=== PATIENT | female | born 1970 | race African-American/Black ===

== ENCOUNTER 2019-08-15 11:14 | Inpatient (IN) ==
--- NOTE | 2019-08-15 12:02 | PROVIDER DOCUMENTATION ---
This chart was entered by Aleshia Navas Scribe, acting as scribe for Adan Gonzalez MD. HPI-General Adult - General Chief Complaint: Near Syncope Stated Complaint: SOB,NEAR SYNCOPE Time Seen by Provider: 08/15/19 11:35 Source: patient Allergies/Adverse Reactions: Patient Allergies Allergy/AdvReac Type Severity Reaction Status Date / Time No Known Allergies Allergy Verified 08/15/19 11:36 Home Medications: Home Medication List Medication Instructions Recorded Confirmed Last Taken Type NK [No Home Medications] 08/15/19 08/15/19 Unknown History - History of Present Illness -Gen Adult Nature of Presenting Problems: 49 y/o female presents to ED with near syncope and nausea onset just prior to arrival. Pt reports she has experienced weakness and continuous/heavy vaginal bleeding for the past 2 months. Pt states her symptoms have gotten progressively worse and she is bleeding through 4 pads/day. Pt reports she was told last year at a walk-in clinic that she needed to have a hysterectomy, but she does not have insurance. Pt is alert and oriented. Location of Pain/Injury: reports: none Pain Radiation: reports: no radiation Quality of Pain: reports: none Severity: reports: moderate Onset/Duration: reports: just prior to arrival, other (2 months ago) Timing: reports: still present, getting worse Context/Activities at Onset: reports: none Modifying Factors: improves with: nothing Associated Symptoms: reports: nausea, syncope (near), weakness, other (heavy vaginal bleeding) Similar Symptoms Previously?: No Recently seen or treated by another doctor?: No Review of Systems - Adult - REVIEW OF SYSTEMS - ADULT Constitutional: denies: chills, fever Eyes: reports: no symptoms reported Ears, Nose, Mouth & Throat: reports: no symptoms reported Cardiovascular: denies: chest pain, palpitations Respiratory: denies: cough, shortness of breath Gastrointestinal: reports: nausea. denies: abdominal pain, diarrhea, vomiting Genitourinary: reports: other (heavy vaginal bleeding). denies: incontinence Musculoskeletal: denies: back pain, joint pain Integumentary: reports: no symptoms reported Neurological: reports: syncope (near), other (weakness). denies: dizziness/v ertigo, seizure Psychiatric: reports: no symptoms reported Endocrine: reports: no symptoms reported Hematologic/Lymphatic: reports: no symptoms reported Allergic/Immunologic: reports: no symptoms reported All Other Systems: Reviewed and Negative Past History - Adult - PAST MEDICAL HISTORY-ADULT Review of Records: reports: Old Records Reviewed, Nursing Assessment Review, Medications Reviewed Major Childhood Illnesses: reports: denies history - PRIOR SURGERIES/PROCEDURES Surgical/Procedure History: reports: none - IMMUNIZATION STATUS Childhood Immunizations: See Nurse Assessment Flu Vaccine: See Nurse Assessment - FAMILY HISTORY Family History: reviewed, not pertinent - SOCIAL HISTORY Smoking: non-smoker Substance Use: none/never Alcohol Use Frequency: never Living Situation: family Physical Exam-General - PHYSICAL EXAM-ADULT Initial Vital Signs Reviewed: Yes - CONSTITUTIONAL General Appearance: appears well, alert, no apparent distress - EYES Eyes: PERRL/EOMI, pale conjunctivae - HEAD, EARS, NOSE, MOUTH & THROAT HENMT: normocephalic/atraumatic, moist mucous membranes, normal ENT inspection - NECK Neck: non-tender, full range of motion - RESPIRATORY Respiratory: chest non-tender, lungs clear, normal breath sounds - CARDIOVASCULAR Cardiovascular: normal peripheral pulses, regular rate, rhythm - GASTROINTESTINAL (ABDOMEN) Abdominal Exam: normal bowel sounds, non tender, soft - GENITOURINARY Female Genitalia/Pelvic Exam: deferred - MUSCULOSKELETAL Back Exam: normal inspection, no CVA tenderness, no vertebral tenderness Extremity: normal range of motion, non-tender - SKIN Integumentary: normal color, warm/dry - NEUROLOGIC Neurologic: grossly normal - PSYCHIATRIC Psych/Mental Status: normal mood/affect, normal thought content, normal thought process, oriented x 3 Progress - PLAN OF CARE/RESULTS Progress/Plan/Lab Results: Vital Signs - 8 hr 08/15/19 11:18 Temperature 97.6 F Pulse Rate 91 H Respiratory Rate 18 Blood Pressure 100/66 O2 Sat by Pulse Oximetry 100 Laboratory Results - last 24 hr 08/15/19 11:35 POC Glucose 238 H Orders Category Date Time Status CBC WITH DIFF [HEME] Stat Lab 08/15/19 11:40 Uncollected COMPREHENSIVE METABOLIC PANEL [CHEM] Stat Lab 08/15/19 11:40 Uncollected PT [PROTIME WITH INR] [COAG] Stat Lab 08/15/19 11:40 Uncollected PTT [COAG] Stat Lab 08/15/19 11:40 Uncollected TYPE & SCREEN [BBK] Stat Lab 08/15/19 11:40 Uncollected Laboratory Tests 08/15/19 08/15/19 08/15/19 11:35 11:47 11:47 WBC 9.94 RBC 2.64 L Hgb 4.8 L* Hct 18.1 L MCV 68.6 L MCH 18.2 L MCHC 26.5 L RDW Std Deviation 21.5 H Plt Count 698 H MPV 9.3 Immature Gran % (Auto) 0.2 Neut % (Auto) 62.1 Lymph % (Auto) 26.1 York % (Auto) 10.6 H Eos % (Auto) 0.5 Baso % (Auto) 0.5 Immature Gran # (Auto) 0.02 Neut # (Auto) 6.18 Lymph # (Auto) 2.59 York # (Auto) 1.05 H Eos # (Auto) 0.05 Baso # (Auto) 0.05 Segmented Neutrophils 76 H Lymphocytes 16 L Monocytes 8 Hypochromia 3+ Large Platelets 1+ Polychromasia 1+ Poikilocytosis 1+ Anisocytosis 2+ Microcytosis 3+ PT INR PTT (Actin FS) Sodium 133 L Potassium 3.9 Chloride 102 Carbon Dioxide 18 L Anion Gap 13 BUN 8 Creatinine 0.7 Estimated GFR/1.73 m2 > 60 BUN/Creatinine Ratio 11 Glucose 233 H POC Glucose 238 H Calculated Osmolality 272 Calcium 9.1 Total Bilirubin 0.27 AST 27 ALT 14 Alkaline Phosphatase 90 Total Protein 7.9 Albumin 3.9 Globulin 4.0 Albumin/Globulin Ratio 1.0 Blood Type Blood Type Confirm Antibody Screen Crossmatch 08/15/19 08/15/19 08/15/19 11:47 11:47 12:18 WBC RBC Hgb Hct MCV MCH MCHC RDW Std Deviation Plt Count MPV Immature Gran % (Auto) Neut % (Auto) Lymph % (Auto) York % (Auto) Eos % (Auto) Baso % (Auto) Immature Gran # (Auto) Neut # (Auto) Lymph # (Auto) York # (Auto) Eos # (Auto) Baso # (Auto) Segmented Neutrophils Lymphocytes Monocytes Hypochromia Large Platelets Polychromasia Poikilocytosis Anisocytosis Microcytosis PT 14.3 INR 1.10 PTT (Actin FS) 28.0 Sodium Potassium Chloride Carbon Dioxide Anion Gap BUN Creatinine Estimated GFR/1.73 m2 BUN/Creatinine Ratio Glucose POC Glucose Calculated Osmolality Calcium Total Bilirubin AST ALT Alkaline Phosphatase Total Protein Albumin Globulin Albumin/Globulin Ratio Blood Type O POSITIVE Blood Type Confirm O POSITIVE Antibody Screen NEGATIVE Crossmatch See Detail Result Diagrams: 08/15/19 11:47 08/15/19 11:47 - EKG 1 Time of EKG reading by physician:: 11:32 EKG Read and Signed by:: Adan Gonzalez EKG Interpretation (*Must complete 3 of following elements*): Normal Rate: 91 Rhythm: NSR Leupp: normal QRS: normal HI Interval: normal ST Wave: normal - ULTRASOUND (By Radiology) 1 US Study: Pelvic Impression: See EMR Report ([facility] - [address], [address], [place] [address] [facility] - [address] [place] [address] Department of Imaging Patient: PETER SMITH Date: 08/15/19MR#: [id number] : 1970ADM Status: REG ERAcct#: [id number] Age/Sex: 49/FRoom/Bed: Loc: ED Ordering Physician: Adan Gonzalez MD Family Physician: None,PCP Reason for Procedure: persistent bleeding Signed EXAM: US PELVIC NON-OB COMPLETE INDICATION: persistent bleeding TECHNIQUE: COMPARISON: None. FINDINGS: There is a hypoechoic mass involving the mid uterine wall measuring up to 4.7 cm. This statistically most likely represents a leiomyoma. The uterus is normal in echotexture, otherwise. It measures 13.3 x 6.4 x 5.3 cm. The endometrium measures 3 mm in thickness. There is a 3.3 cm left ovarian cyst. The left ovary measures 5.1 cm and the right ovary measures 2.7 cm in the greatest dimensions. Both ovaries exhibit Doppler flow. No solid adnexal masses are appreciated. No pelvic free fluid is identified. IMPRESS ION: 1.Uterine wall mass most consistent with a leiomyoma. 2.Simple appearing left ovarian cyst. Electronically signed by Jan Byrne 08/15/2019 3:13 PM 08/15/19 1513 Interpreting Physician: Jan Byrne MD Dictated Date/Time: 08/15/19 1511 cc: Adan Gonzalez MD; None,PCP) - CONSULTS/PCP/HOSPITALIST Notification #1 *Consult/PCP/Hospitalist*: JOSE Chambers for hospitalist Time Discussed: 15:39 Reason/Comments: Hemoglobin 4.8, uterine mass, new onset diabetes Consult Disposition: Admit (consult APPEALS REFEREE) #2 Consult: Dr. Hilton Time Discussed: 15:42 Reason/Comments: Hemoglobin 4.8, uterine mass, new onset diabetes Consult Disposition: Admit Departure - Departure Date of Disposition Decision: 08/15/19 Time of Disposition Decision: 15:41 DIAGNOSIS: Acute blood loss anemia, Pre-syncope, Diabetes mellitus, new onset Uterine fibroid Qualifiers: Uterine leiomyoma location: unspecified location Qualified Code(s): D25.9 - Leiomyoma of uterus, unspecified Disposition: ADMITTED INPATIENT 09 Certified Medical Emergency: Emergent Condition: Stable Referrals and Follow-Ups: None,PCP [Primary Care Provider] - - Critical Care Note This patient required my direct & personal management of CC.: Yes Total Time (mins): 30 Critical Care Statement: This patient required my direct personal management to treat or rule out processes, the absence of which, could potentiallly result in sudden, clinically significant life or limb threatening deterioration. Attestation - Physician/ DONOVAN Attestation Patient care was provided by Advanced Practice Provider:: No The physician spent face to face time with patient:: Yes Advanced Practice Provider documentation review:: Supervising physician onsite and consulted in the evaluation and care of this patient. The physician did have a face to face encounter with the patient. This chart was documented by the indicated scribe, (Aleshia Navas Scribe) and accurately reflects the services I performed and decisions made by me, Adan Gonzalez MD, as attested by the provider's signature.
[2019-08-15] MEDS ORDERED: NS 500 ML IV ONE (12:09)
[2019-08-15 12:10] LABS: BASO# 0.05 X1000 (0.0-0.2); BASO% 0.5 % (0.0-0.8); EOS# 0.05 X1000 (0.0-0.7); EOS% 0.5 % (0.0-10.0); HEMATOCRIT 18.1 % (37.0-47.0); HEMOGLOBIN 4.8 g/dL (12.0-16.0); IMM GRAN# 0.02 X1000 (0.0-0.04); IMM GRAN% 0.2 % (0.0-0.5); INR 1.1; LYMPH# 2.59 X1000 (1.2-3.4); LYMPH% 26.1 % (20.5-51.1); MCH 18.2 PG (27-31); MCHC 26.5 g/dL (33-37); MCV 68.6 FL (81-99); MONO# 1.05 X1000 (0.11-0.59); MONO% 10.6 % (1.7-9.3); MPV 9.3 FL (7.4-10.4); NEUT# 6.18 X1000 (1.4-6.5); NEUT% 62.1 % (42.2-75.2); PLT 698 X1000 (130-400); PROTIME 14.3 Seconds (11.0-16.0); RBC 2.64 XMIL (4.2-5.4); RDW 21.5 % (11.5-14.5); WBC 9.94 X1000 (4.8-10.8)
[2019-08-15 12:15] LABS: AGAP 13; ALBUMIN 3.9 g/dL (3.5-5.0); ALKALINE PHOSPHATASE 90 U/L (32-104); BUN 8 mg/dL (8-22); CALCIUM 9.1 mg/dL (8.8-10.2); CHLORIDE 102 mmol/L (98-107); COSMO 272; CREATININE 0.7 mg/dL (0.5-0.9); ESTIMATED GFR > 60; GLUCOSE 233 mg/dL (70-104); GOT 27 U/L (10-30); GPT 14 U/L (10-36); POTASSIUM 3.9 mmol/L (3.5-5.1); SODIUM 133 mmol/L (136-145); TCO2 18 mmol/L (25-35); TOTAL BILIRUBIN 0.27 mg/dL (0.20-1.00); TOTAL PROTEIN 7.9 g/dL (6.3-8.3)
[2019-08-15 12:39] LABS: LYMPHS 16 % (21-51); MONO 8 % (1-9); SEGS 76 % (42-75)
[2019-08-15 12:40] LABS: ANISOCYTOSIS 2+; HYPOCHROM 3+; MICROCYTOSIS 3+; POIKILOCYTOSIS 1+; POLYCHROM 1+
[2019-08-15 12:41] LABS: LARGE PLATELETS 1+
--- NOTE | 2019-08-15 15:15 | Diag Imaging Result Doc PS360 ---
EXAM: US PELVIC NON-OB COMPLETE INDICATION: persistent bleeding TECHNIQUE: COMPARISON: None. FINDINGS: There is a hypoechoic mass involving the mid uterine wall measuring up to 4.7 cm. This statistically most likely represents a leiomyoma. The uterus is normal in echotexture, otherwise. It measures 13.3 x 6.4 x 5.3 cm. The endometrium measures 3 mm in thickness. There is a 3.3 cm left ovarian cyst. The left ovary measures 5.1 cm and the right ovary measures 2.7 cm in the greatest dimensions. Both ovaries exhibit Doppler flow. No solid adnexal masses are appreciated. No pelvic free fluid is identified. IMPRESSION: 1.Uterine wall mass most consistent with a leiomyoma. 2.Simple appearing left ovarian cyst. Electronically signed by Jan Byrne 08/15/2019 3:13 PM
[2019-08-15] MEDS ORDERED: TYLENOL PO PRN (16:43)
[2019-08-15] MEDS ORDERED: ZOFRAN IV PRN (16:43)
[2019-08-15] MEDS: THERA M PLUS PO SCH (18:03)
[2019-08-15] MEDS: FERROUS SULFATE PO SCH (18:03)
[2019-08-15 18:19] LABS: FREE T4 1.11 ng/dL (0.93-1.70); TSH 0.25 uIUmL (0.27-4.20)
[2019-08-15 18:39] LABS: IRON SATURATION 2 %; TIBC 503 ug/dL
[2019-08-15 18:42] LABS: TOTAL IRON 9 ug/dL (49-151); UNBOUND IRON 494 ug/dL (112-346)
--- NOTE | 2019-08-15 19:01 | HISTORY AND PHYSICAL ---
PRIMARY CARE PROVIDER: No one. CHIEF COMPLAINT: Nearly passed out. HISTORY OF PRESENT ILLNESS: Ms. Emmanuelle Grijalva is a 49-year-old, - [place]ian female, who states that over the last two months, she has had excessive vaginal bleeding. Apparently, she was told around a year ago, she needed to have a hysterectomy. She states that the only relief she got from the vaginal bleeding was late June, she had four days of no bleeding, but otherwise, she has been soaking four extra-large Teressa-Pads a day. She has noticed that she has had some shortness of breath with chest pain during her lightheaded spells. She has noticed lower extremity swelling, which is not obvious today. She denies any cramps or any other symptoms. She was brought in. Her initial workup included hemoglobin hematocrit which was significantly low at 4.8 and 18.1. She had a pelvic ultrasound performed which showed uterine wall mass most consistent with a leiomyoma and also a simple-appearing, left ovarian cyst. She will get blood while she is here and will have a AUTOMOTIVE SERVICE MANAGEMENT TEACHER consult. PAST MEDICAL HISTORY: 1. Hypothyroidism. 2. Hypertension. SURGICAL HISTORY: 1. section. 2. Bilateral tubal ligation. 3. Breast reduction. SOCIAL HISTORY: Denies tobacco, alcohol, or illicit drug use. She has been about four years. She has one child. 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 FAMILY HISTORY: Both her mother and father in 2014. Her mother had diabetes, stomach cancer, and a heart attack at 69. Her father of liver cancer at 72. ALLERGIES: No known drug allergies. HOME MEDICATIONS: None. REVIEW OF SYSTEMS: A 14-point review of systems is complete and all are negative, except for those mentioned above in HPI. PHYSICAL EXAMINATION: VITAL SIGNS: Temperature 98.2 degrees, heart rate 88, respiratory rate 21, blood pressure 120/70, O2 saturation 100% on room air. GENERAL: Ms. Emmanuelle Grijalva is a 49-year-old, -Lithuanian female. She is in no acute distress. She is able to answer questions appropriately. HEENT: Atraumatic, normocephalic. Pupils equal, round, reactive to light. Extraocular movements intact. Mucous membranes are dry. NECK: Trachea midline. CARDIOVASCULAR: S1, S2. Regular rate and rhythm. No rubs, gallops, or murmurs. No lower extremity edema. Dorsalis and radial pulses +2. Negative JVD or carotid bruits. PULMONARY: Clear to auscultation. Bilateral breath sounds. No accessory muscle use or work of breathing noted. GASTROINTESTINAL: Soft, nontender, nondistended. Positive bowel sounds x4. EXTREMITIES: Moves all extremities equally. Full range of motion. NEUROLOGIC: A O x3. Follows commands. Sensory is intact. SKIN: Warm, dry, intact, and pale. LABORATORY DATA: White blood cells 9000, hemoglobin 4.8, hematocrit 18.1, platelet count 698,000. INR is 1.10, PTT 28. Sodium 133, potassium 3.9, BUN 8, creatinine 0.7, glucose 233, calcium 9.1. Bilirubin 0.27, AST 27, ALT 14, albumin 3.9. IMAGING: Pelvic ultrasound: Uterine wall mass most consistent with leiomyoma and simple- appearing, left ovarian cyst. ASSESSMENT AND PLAN: 1. Menorrhagia secondary to leiomyoma. Gynecology is consulted. She has had bleeding for at least two months now and saturating four large Teressa-Pads per day, having symptomatic anemia with it. We will put in a consult for Dr. Hilton. 2. Acute blood loss anemia. Symptomatically, near syncope or syncopal while she was actually trying to drive. She had to stop on the side of the road. She has two units of blood ordered. We will do q.6 hours hemoglobin and hematocrit. 3. Hypothyroidism. We will check her thyroid function. She is not on any medicine for it. 4. Hypertension. She states she was on medicine for it around two years ago, but she has not been taking any now. 5. Possible newly diagnosed diabetes mellitus type 2. She is hyperglycemic in the 200s right now, so will put her on a diabetic diet and check a hemoglobin A1c. If her blood glucose levels remain elevated, we will start her on sliding scale insulin and patterned blood glucoses. 6. Deep venous thrombosis prophylaxis. SCDs. Dictated by JOSE Mcdonald for Fabián Greenberg MD cc: JOSE Mcdonald MD I agree with most components of history, physical, assessment and plan. A separate addendum has been dictated. [facility]
--- NOTE | 2019-08-15 19:11 | HISTORY AND PHYSICAL ---
ADDENDUM: This is an addendum to the history and physical dictated by the nurse practitioner. I agree with most components of the of history and physical, assessment, and plan. HISTORY OF PRESENT ILLNESS: In brief, Ms. Grijalva is a 49-year-old, - Nigerien lady, with past medical history of abnormal uterine bleeding which has been going on since the past few years. She came in with chief complaints of near syncope episode and continued uterine bleeding for about two months' duration. In the emergency room, she was found to have hemoglobin of 4.8, so the Hospitalist team was consulted for further management. Gynecology team was consulted, but their recommendations are pending. Subjectively, the patient denies any chest pain or shortness of breath. At the moment, she is denying any dizziness. She is getting her second unit of blood. VITAL SIGNS: Temperature 98.2 degrees, pulse 88, respiratory rate 21, blood pressure 120/70. She is saturating 100% on room air. PHYSICAL EXAMINATION: GENERAL: Does not appear in acute distress. ENT: Oral cavity is moist. LUNGS: Air entry bilaterally equal. No wheeze or rhonchi. ABDOMEN: Soft, nontender. No hepatosplenomegaly. EXTREMITIES: No lower extremity edema. SKIN: She does have significant pallor affecting conjunctivae. NEUROLOGIC: She is alert and oriented x3. LABORATORY DATA: Labs suggestive of hemoglobin of 4.8, hematocrit of 18%, MCV of 60, which is suggestive of chronic blood loss. She has normal coagulation. Essentially normal electrolytes, except hyperglycemia for which hemoglobin A1c has been ordered. Urine test was negative. MICROBIOLOGICAL DATA: None. IMAGING: Pelvic ultrasound has suggested uterine wall mass most consistent with leiomyoma and simple-appearing, left ovarian cyst. ASSESSMENT: 1. Abnormal uterine bleeding. 2. Symptomatic acute blood loss anemia. 3. Obesity. PLAN: The patient will be transfused blood and we will get serial hemoglobins. We will try to keep her hemoglobin more than 7. We will also consult Gynecology for further recommendations. Meanwhile, I will start her on estrogen and progestin containing pills starting tonight. DISPOSITION: I will monitor patient. Plan of care discussed with the patient and her family members. Their questions have been answered satisfactorily. cc: MD TELMA Linton
--- NOTE | 2019-08-15 20:22 | CONSULTATION ---
DATE OF CONSULTATION: 08/15/2019 CHIEF COMPLAINT: Shortness of breath, nausea, vomiting. HISTORY OF PRESENT ILLNESS: The patient was driving today with a granddaughter in the car and felt dizzy and lightheaded, had to date puller into [employer] [place] and have her come get her and take her to the hospital. She presented to the ED. She was found to have a hemoglobin of 4.8 and hematocrit of 18.1. She also had a significantly elevated blood sugar level at 233. States she has no prior history of diabetes. Her bleeding history is abnormal over the past 2 years. Over the past year she states that she has had very heavy periods but also has skipped several. She skipped December, January and February of this year after a heavy period in November. She then had additional periods up until June when she started to bleed very heavily and states she has bled most days of the month since then. Today she feels she is bleeding much residential counselor. Her typical day is 4 to 5 pads per day with moderate sized clots on them. She was told about a year ago by a physician that she should have a hysterectomy but as she is without insurance she has not been able to do that. MEDICAL HISTORY: The patient denies any problems. SURGICAL HISTORY: section, Tubal MEDICINES: Denies. ALLERGIES: She has no known allergies. FAMILY HISTORY: Noncontributory. SOCIAL HISTORY: She is . She had 1 child. She denies alcohol, tobacco, or drug use. She does take care of her granddaughter. SHAMPOOER HISTORY: She had a Pap as recently as [address] Best and it was negative. She denies a history of STDs. OBSTETRIC HISTORY: Positive for 1 term delivery of a 9 pound baby by . REVIEW OF SYSTEMS: She has shortness of breath, especially with exertion. She has mild chest pain with exertion but not otherwise. She had episode of nausea and vomiting today after she was lightheaded but has not otherwise been sick. She has no symptoms reported for ears, nose, mouth and throat. Cardiovascular: She denies chest pain or palpitations. Respiratory: Denies cough, shortness of breath. GI: She had nausea earlier but currently denies. : She has vaginal bleeding but it is lightened today. Musculoskeletal: Denies any joint pain. All other systems negative. PE: Vitals: Blood pressure most recently 129/49, pulse of 84, respiratory rate is 18, temperature is 98.4 degrees. General Appearance: Patient appears in no apparent distress. She is alert, cooperative and pleasant. Eyes: Extraocular motions intact. Neck: Normal. Trachea is midline and thyroid is normal feeling. Respiratory: Chest is clear to auscultation bilaterally. Cardiovascular: Normal pulses. Regular rate and rhythm. GI: Soft, nontender. : Was deferred. She had already had a pelvic exam for today. Extremities: Lower extremities are nontender to palpation. No edema. Skin: Normal. Neurologic and Psychiatric: She has a normal mood and affect. Alert and oriented x3. ASSESSMENT AND PLAN: Plan to give her Megace 40 mg b.i.d. and also check her prolactin and her TSH and free T4. She states she had a history of thyroid disease but had declined treatment at the time. Suggest that she use the Megace outpatient and visit liquor department manager for further treatment. If needed she can be set up with one of the hospital programs to discuss hysterectomy. She may be able to get some relief of bleeding with progestins orally until she can have her diabetes controlled and be a better surgical candidate. If her bleeding is significant and it becomes emergent, hysterectomy could be performed to stop her bleeding but as she said it is residential counselor today. Her EMS was only 3mm on pelvic US today so likely the end of her period/bleeding episode. Also, progestins may help her significantly. cc: Shaka Hilton DO [facility]
[2019-08-15] MEDS: PRILOSEC PO SCH (20:32)
[2019-08-15] MEDS: MEGACE PO SCH (20:42)
[2019-08-15 20:48] LABS: FREE T4 1.1 ng/dL (0.93-1.70); TSH 0.25 uIUmL (0.27-4.20)
[2019-08-15] MEDS ORDERED: MISC. PHARMACY COMMUNICATION SCH (21:00)
[2019-08-15] MEDS ORDERED: NON-FORMULARY BULK MED PO SCH (21:00)
[2019-08-15 22:35] LABS: HEMATOCRIT 24.5 % (37.0-47.0); HEMOGLOBIN 7.4 g/dL (12.0-16.0)
[2019-08-16 04:56] LABS: BASO# 0.02 X1000 (0.0-0.2); BASO% 0.2 % (0.0-0.8); EOS# 0.06 X1000 (0.0-0.7); EOS% 0.7 % (0.0-10.0); HEMATOCRIT 23.4 % (37.0-47.0); HEMOGLOBIN 7.1 g/dL (12.0-16.0); LYMPH# 2.75 X1000 (1.2-3.4); LYMPH% 31.6 % (20.5-51.1); MCH 23.1 PG (27-31); MCHC 30.3 g/dL (33-37); MCV 76.2 FL (81-99); MONO# 0.97 X1000 (0.11-0.59); MONO% 11.1 % (1.7-9.3); MPV 9.3 FL (7.4-10.4); NEUT# 4.91 X1000 (1.4-6.5); NEUT% 56.4 % (42.2-75.2); PLT 494 X1000 (130-400); RBC 3.07 XMIL (4.2-5.4); RDW 24.4 % (11.5-14.5); WBC 8.71 X1000 (4.8-10.8)
[2019-08-16 05:02] LABS: INR 1.1; PROTIME 14.4 Seconds (11.0-16.0)
[2019-08-16 05:03] LABS: PTT 27.9 Seconds (22.3-41.8)
[2019-08-16 05:05] LABS: AGAP 11; ALBUMIN 3.5 g/dL (3.5-5.0); ALKALINE PHOSPHATASE 79 U/L (32-104); BUN 10 mg/dL (8-22); CALCIUM 8.5 mg/dL (8.8-10.2); CHLORIDE 105 mmol/L (98-107); COSMO 275; CREATININE 0.6 mg/dL (0.5-0.9); ESTIMATED GFR > 60; GLUCOSE 175 mg/dL (70-104); GOT 19 U/L (10-30); GPT 13 U/L (10-36); MAGNESIUM 1.9 mg/dL (1.5-2.7); POTASSIUM 4.4 mmol/L (3.5-5.1); SODIUM 136 mmol/L (136-145); TCO2 20 mmol/L (25-35); TOTAL BILIRUBIN 0.29 mg/dL (0.20-1.00); TOTAL PROTEIN 7.1 g/dL (6.3-8.3)
[2019-08-16] MEDS: PRILOSEC PO SCH ×2 (06:13→20:39)
--- NOTE | 2019-08-16 07:53 | OB/GYN PROGRESS NOTE ---
Progress Note CONDENSER TESTER - . Patient Problems: Current Active Problems Problem Status Onset Acute blood loss anemia Acute Pre-syncope Acute Uterine fibroid Acute Diabetes mellitus, new onset Acute CONDENSER TESTER Progress Note: Vital Signs - 24 hr 08/15/19 11:18 08/15/19 11:33 08/15/19 12:13 Temperature 97.6 F Pulse Rate 91 H 88 89 Respiratory Rate 18 20 18 Blood Pressure 100/66 107/65 104/72 O2 Sat by Pulse Oximetry 100 100 100 08/15/19 12:17 08/15/19 12:33 08/15/19 12:47 Temperature Pulse Rate 88 86 90 Respiratory Rate 15 13 17 Blood Pressure 108/68 103/65 102/60 O2 Sat by Pulse Oximetry 100 100 100 08/15/19 13:02 08/15/19 13:17 08/15/19 13:32 Temperature Pulse Rate 90 88 85 Respiratory Rate 19 17 18 Blood Pressure 102/67 98/64 105/59 O2 Sat by Pulse Oximetry 100 100 98 08/15/19 13:48 08/15/19 13:55 08/15/19 14:03 Temperature 98.4 F Pulse Rate 88 90 79 Respiratory Rate 14 18 20 Blood Pressure 101/72 109/63 105/67 O2 Sat by Pulse Oximetry 100 100 100 08/15/19 14:10 08/15/19 14:18 08/15/19 14:32 Temperature 97.8 F Pulse Rate 78 83 79 Respiratory Rate 17 20 17 Blood Pressure 117/73 111/71 108/69 O2 Sat by Pulse Oximetry 100 100 100 08/15/19 15:03 08/15/19 15:27 08/15/19 15:32 Temperature 98.1 F Pulse Rate 84 86 90 Respiratory Rate 20 18 20 Blood Pressure 107/67 117/73 112/75 O2 Sat by Pulse Oximetry 100 100 100 08/15/19 16:03 08/15/19 16:13 08/15/19 16:28 Temperature 98.1 F 98.2 F Pulse Rate 83 89 88 Respiratory Rate 21 22 21 Blood Pressure 116/78 122/79 120/70 O2 Sat by Pulse Oximetry 100 100 100 08/15/19 16:33 08/15/19 17:02 08/15/19 17:25 Temperature Pulse Rate 88 87 83 Respiratory Rate 19 16 15 Blood Pressure 114/70 114/79 129/84 O2 Sat by Pulse Oximetry 100 100 100 08/15/19 17:51 08/15/19 17:53 08/15/19 18:10 Temperature 98.4 F Pulse Rate 83 97 H 84 Respiratory Rate 18 18 Blood Pressure 129/84 129/49 O2 Sat by Pulse Oximetry 98 100 08/15/19 18:23 08/15/19 18:35 08/15/19 20:00 Temperature 98.6 F 98.6 F Pulse Rate 84 83 88 Respiratory Rate 18 Blood Pressure 129/84 103/56 O2 Sat by Pulse Oximetry 98 100 08/16/19 00:00 08/16/19 04:00 08/16/19 07:07 Temperature 98.3 F 98.0 F 98.3 F Pulse Rate 80 81 75 Respiratory Rate 18 Blood Pressure 101/51 124/68 110/55 O2 Sat by Pulse Oximetry 100 97 100 Laboratory Results - last 24 hr 08/15/19 08/15/19 08/15/19 11:35 11:47 11:47 WBC 9.94 RBC 2.64 L Hgb 4.8 L* Hct 18.1 L MCV 68.6 L MCH 18.2 L MCHC 26.5 L RDW Std Deviation 21.5 H Plt Count 698 H MPV 9.3 Immature Gran % (Auto) 0.2 Neut % (Auto) 62.1 Lymph % (Auto) 26.1 Greer % (Auto) 10.6 H Eos % (Auto) 0.5 Baso % (Auto) 0.5 Immature Gran # (Auto) 0.02 Neut # (Auto) 6.18 Lymph # (Auto) 2.59 Greer # (Auto) 1.05 H Eos # (Auto) 0.05 Baso # (Auto) 0.05 Segmented Neutrophils 76 H Lymphocytes 16 L Monocytes 8 Hypochromia 3+ Large Platelets 1+ Polychromasia 1+ Poikilocytosis 1+ Anisocytosis 2+ Microcytosis 3+ PT INR PTT (Actin FS) Sodium 133 L Potassium 3.9 Chloride 102 Carbon Dioxide 18 L Anion Gap 13 BUN 8 Creatinine 0.7 Estimated GFR/1.73 m2 > 60 BUN/Creatinine Ratio 11 Glucose 233 H POC Glucose 238 H Estimat Average Glucose Hemoglobin A1c Calculated Osmolality 272 Calcium 9.1 Magnesium Iron TIBC % Saturation Unsat Iron Binding Ferritin Total Bilirubin 0.27 AST 27 ALT 14 Alkaline Phosphatase 90 Total Protein 7.9 Albumin 3.9 Globulin 4.0 Albumin/Globulin Ratio 1.0 Vitamin B12 Folate TSH Free T4 Urine Test Blood Type Blood Type Confirm Antibody Screen Crossmatch 08/15/19 08/15/19 08/15/19 11:47 11:47 11:47 WBC RBC Hgb Hct MCV MCH MCHC RDW Std Deviation Plt Count MPV Immature Gran % (Auto) Neut % (Auto) Lymph % (Auto) Greer % (Auto) Eos % (Auto) Baso % (Auto) Immature Gran # (Auto) Neut # (Auto) Lymph # (Auto) Greer # (Auto) Eos # (Auto) Baso # (Auto) Segmented Neutrophils Lymphocytes Monocytes Hypochromia Large Platelets Polychromasia Poikilocytosis Anisocytosis Microcytosis PT 14.3 INR 1.10 PTT (Actin FS) 28.0 Sodium Potassium Chloride Carbon Dioxide Anion Gap BUN Creatinine Estimated GFR/1.73 m2 BUN/Creatinine Ratio Glucose POC Glucose Estimat Average Glucose 154 Hemoglobin A1c 7.0 H Calculated Osmolality Calcium Magnesium Iron TIBC % Saturation Unsat Iron Binding Ferritin Total Bilirubin AST ALT Alkaline Phosphatase Total Protein Albumin Globulin Albumin/Globulin Ratio Vitamin B12 Folate TSH Free T4 Urine Test Blood Type O POSITIVE Blood Type Confirm Antibody Screen NEGATIVE Crossmatch See Detail 08/15/19 08/15/19 08/15/19 11:47 11:47 11:47 WBC RBC Hgb Hct MCV MCH MCHC RDW Std Deviation Plt Count MPV Immature Gran % (Auto) Neut % (Auto) Lymph % (Auto) Greer % (Auto) Eos % (Auto) Baso % (Auto) Immature Gran # (Auto) Neut # (Auto) Lymph # (Auto) Greer # (Auto) Eos # (Auto) Baso # (Auto) Segmented Neutrophils Lymphocytes Monocytes Hypochromia Large Platelets Polychromasia Poikilocytosis Anisocytosis Microcytosis PT INR PTT (Actin FS) Sodium Potassium Chloride Carbon Dioxide Anion Gap BUN Creatinine Estimated GFR/1.73 m2 BUN/Creatinine Ratio Glucose POC Glucose Estimat Average Glucose Hemoglobin A1c Calculated Osmolality Calcium Magnesium Iron 9 L TIBC 503 % Saturation 2 Unsat Iron Binding 494 H Ferritin 8 L Total Bilirubin AST ALT Alkaline Phosphatase Total Protein Albumin Globulin Albumin/Globulin Ratio Vitamin B12 960 H Folate 18.3 TSH 0.25 L Free T4 1.11 Urine Test Blood Type Blood Type Confirm Antibody Screen Crossmatch 10/10/2208/15/19 08/15/19 11:47 12:18 16:14 WBC RBC Hgb Hct MCV MCH MCHC RDW Std Deviation Plt Count MPV Immature Gran % (Auto) Neut % (Auto) Lymph % (Auto) Greer % (Auto) Eos % (Auto) Baso % (Auto) Immature Gran # (Auto) Neut # (Auto) Lymph # (Auto) Greer # (Auto) Eos # (Auto) Baso # (Auto) Segmented Neutrophils Lymphocytes Monocytes Hypochromia Large Platelets Polychromasia Poikilocytosis Anisocytosis Microcytosis PT INR PTT (Actin FS) Sodium Potassium Chloride Carbon Dioxide Anion Gap BUN Creatinine Estimated GFR/1.73 m2 BUN/Creatinine Ratio Glucose POC Glucose Estimat Average Glucose Hemoglobin A1c Calculated Osmolality Calcium Magnesium Iron TIBC % Saturation Unsat Iron Binding Ferritin Total Bilirubin AST ALT Alkaline Phosphatase Total Protein Albumin Globulin Albumin/Globulin Ratio Vitamin B12 Folate TSH 0.25 L Free T4 1.10 Urine Test NEGATIVE Blood Type Blood Type Confirm O POSITIVE Antibody Screen Crossmatch 08/15/19 08/16/19 08/16/19 22:20 04:00 04:00 WBC 8.71 RBC 3.07 L Hgb 7.4 L D 7.1 L Hct 24.5 L D 23.4 L MCV 76.2 L MCH 23.1 L MCHC 30.3 L RDW Std Deviation 24.4 H Plt Count 494 H MPV 9.3 Immature Gran % (Auto) 0.0 Neut % (Auto) 56.4 Lymph % (Auto) 31.6 Greer % (Auto) 11.1 H Eos % (Auto) 0.7 Baso % (Auto) 0.2 Immature Gran # (Auto) 0.00 Neut # (Auto) 4.91 Lymph # (Auto) 2.75 Greer # (Auto) 0.97 H Eos # (Auto) 0.06 Baso # (Auto) 0.02 Segmented Neutrophils Lymphocytes Monocytes Hypochromia Large Platelets Polychromasia Poikilocytosis Anisocytosis Microcytosis PT INR PTT (Actin FS) Sodium 136 Potassium 4.4 Chloride 105 Carbon Dioxide 20 L Anion Gap 11 BUN 10 Creatinine 0.6 Estimated GFR/1.73 m2 > 60 BUN/Creatinine Ratio 17 Glucose 175 H POC Glucose Estimat Average Glucose Hemoglobin A1c Calculated Osmolality 275 Calcium 8.5 L Magnesium 1.9 Iron TIBC % Saturation Unsat Iron Binding Ferritin Total Bilirubin 0.29 AST 19 ALT 13 Alkaline Phosphatase 79 Total Protein 7.1 Albumin 3.5 Globulin 3.6 Albumin/Globulin Ratio 1.0 Vitamin B12 Folate TSH Free T4 Urine Test Blood Type Blood Type Confirm Antibody Screen Crossmatch 08/16/19 04:00 WBC RBC Hgb Hct MCV MCH MCHC RDW Std Deviation Plt Count MPV Immature Gran % (Auto) Neut % (Auto) Lymph % (Auto) Greer % (Auto) Eos % (Auto) Baso % (Auto) Immature Gran # (Auto) Neut # (Auto) Lymph # (Auto) Greer # (Auto) Eos # (Auto) Baso # (Auto) Segmented Neutrophils Lymphocytes Monocytes Hypochromia Large Platelets Polychromasia Poikilocytosis Anisocytosis Microcytosis PT 14.4 INR 1.10 PTT (Actin FS) 27.9 Sodium Potassium Chloride Carbon Dioxide Anion Gap BUN Creatinine Estimated GFR/1.73 m2 BUN/Creatinine Ratio Glucose POC Glucose Estimat Average Glucose Hemoglobin A1c Calculated Osmolality Calcium Magnesium Iron TIBC % Saturation Unsat Iron Binding Ferritin Total Bilirubin AST ALT Alkaline Phosphatase Total Protein Albumin Globulin Albumin/Globulin Ratio Vitamin B12 Folate TSH Free T4 Urine Test Blood Type Blood Type Confirm Antibody Screen Crossmatch 49 yo with AUB, anemia, DM-2 Patient seen and examined. She states vaginal bleeding is unchanged since admission. Megace 40mg BID started last night, so she has received 1 dose. She has been bleeding since June. Prior to June menses was regular. She denies any continued nausea/vomiting. She is tolerating a regular diet. She is s/p 2 uPRBCs, hgb stable at 7.1 this AM. She does note some mild dizziness with standing/walking, but states she is feeling better today. Discussed US findings with patient. EXAM: US PELVIC NON-OB COMPLETE INDICATION: persistent bleeding TECHNIQUE: COMPARISON: None. FINDINGS: There is a hypoechoic mass involving the mid uterine wall measuring up to 4.7 cm. This statistically most likely represents a leiomyoma. The uterus is normal in echotexture, otherwise. It measures 13.3 x 6.4 x 5.3 cm. The endometrium measures 3 mm in thickness. There is a 3.3 cm left ovarian cyst. The left ovary measures 5.1 cm and the right ovary measures 2.7 cm in the greatest dimensions. Both ovaries exhibit Doppler flow. No solid adnexal masses are appreciated. No pelvic free fluid is identified. IMPRESSION: 1.Uterine wall mass most consistent with a leiomyoma. 2.Simple appearing left ovarian cyst. Physical Exam-General - PHYSICAL EXAM-ADULT Initial Vital Signs Reviewed: Yes - CONSTITUTIONAL General Appearance: appears well, alert, no apparent distress - EYES Eyes: PERRL/EOMI - HEAD, EARS, NOSE, MOUTH & THROAT HENMT: normocephalic/atraumatic - RESPIRATORY Respiratory: lungs clear, normal breath sounds, no respiratory distress - CARDIOVASCULAR Cardiovascular: regular rate, rhythm - GASTROINTESTINAL (ABDOMEN) Abdominal Exam: normal bowel sounds, non tender, soft - GENITOURINARY Female Genitalia/Pelvic Exam: deferred - MUSCULOSKELETAL Extremity: normal range of motion, non-tender - PSYCHIATRIC Psych/Mental Status: normal mood/affect Assessment/Plan - Assessment/Plan Assessment: 49 yo with AUB, anemia, uterine fibroid, DM-2, low TSH 1. HD stable, s/p 2 u PRBCs, Hgb 7.1 this AM 2. Megace 40mg BID started last night, bleeding unchanged since admission. Hopefully bleeding with slow with megace. Plan to f/u outpatient and further discuss options (surgical vs. medical) 3. Newly dx DM-2, mgmt per hospitalist 4. low TSH, T4 WNL 5. Iron 324mg BID for anemia
[2019-08-16] MEDS ORDERED: NS 500 ML IV ONE (08:13)
--- NOTE | 2019-08-16 08:47 | EKG Report ---
Test Performed on : 08/16/2019 06:27:34 AM Test Reason : anemia Blood Pressure : / mmHG Vent. Rate : 079 BPM Atrial Rate : 079 BPM P-R Int : 118 ms QRS Dur : 084 ms QT Int : 364 ms P-R-T Axes : 048 035 014 degrees QTc Int : 417 ms Normal sinus rhythm. Normal ECG When compared with ECG of 15-AUG-2019 11:24, (Unconfirmed) No significant change was found Confirmed by Priyank Redman MD ([id number]) on 08/16/2019 9:43:11 PM
[2019-08-16] MEDS: MEGACE PO SCH ×2 (09:01→20:39)
[2019-08-16] MEDS: GLUCOPHAGE PO SCH ×2 (09:06→17:04)
--- NOTE | 2019-08-16 09:06 | PROGRESS NOTE ---
DATE: 08/16/2019 INTERVAL HISTORY: She continues to have vaginal bleeding. COMPLIANCE NURSE team had recommended megestrol that she has been started on. Her hemoglobin simon appropriately after 2 units of blood transfusion. SUBJECTIVE: She is feeling much better today than before. We discussed about low hemoglobin. We discussed about blood transfusion. Outpatient [employer]ER followup, and I answered all of her questions. She denies any chest pain or shortness of breath or any more dizziness. OBJECTIVE: Vital Signs: Temperature 98.3 degrees, pulse 75, respiratory rate 18, blood pressure 110/55, saturating 100% on room air. General: Obese, not in any acute distress. HEENT: Oral cavity is moist. Mild conjunctival pallor. Lungs: Air entry bilaterally equal. No wheeze, rhonchi, crackles. Heart: S1, S2 normal. No murmur or gallop. Abdomen: Soft, nontender. Extremities: No lower extremity edema. Neurologic: She is alert and oriented x3. LABORATORY DATA: Labs suggestive of hemoglobin of 7.1, MCV of 76, platelet of 496,000. Normal coagulation. Normal electrolytes. Her vitamin B12 was high, her TSH was low, but free T4 was normal. MICROBIOLOGY: No data. IMAGING: No data. ASSESSMENT AND PLAN: 1. Abnormal uterine bleeding with presence of leiomyoma, status post 2 units of packed red blood cells transfusion for acute blood loss symptomatic anemia. Continue megestrol 40 mg twice daily as per Gynecology recommendation, ferrous sulfate, and I will continue her on iron with multivitamin. She will need outpatient Gynecology followup for future discussion about medical versus surgical treatment. Her TSH is low but FT4 is normal. I advised her to recheck her tests in 4 weeks. 2. New-onset diabetes mellitus type 2. I will start her on metformin. 3. Disposition. I will monitor the patient in PVC unit for one more day. Plan of care discussed with her. Her questions have been answered. I am transfusing third unit of blood. cc: MD TELMA Linton
[2019-08-16] MEDS: FERROUS SULFATE PO SCH (17:04)
[2019-08-16] MEDS: THERA M PLUS PO SCH (17:04)
[2019-08-17] MEDS: PRILOSEC PO SCH (06:12)
[2019-08-17 07:15] LABS: BASO# 0.04 X1000 (0.0-0.2); BASO% 0.4 % (0.0-0.8); EOS# 0.11 X1000 (0.0-0.7); EOS% 1.1 % (0.0-10.0); HEMATOCRIT 28.3 % (37.0-47.0); HEMOGLOBIN 8.7 g/dL (12.0-16.0); IMM GRAN# 0.02 X1000 (0.0-0.04); IMM GRAN% 0.2 % (0.0-0.5); LYMPH# 2.84 X1000 (1.2-3.4); LYMPH% 29.4 % (20.5-51.1); MCH 24.1 PG (27-31); MCHC 30.7 g/dL (33-37); MCV 78.4 FL (81-99); MONO# 0.91 X1000 (0.11-0.59); MONO% 9.4 % (1.7-9.3); MPV 10.5 FL (7.4-10.4); NEUT# 5.75 X1000 (1.4-6.5); NEUT% 59.5 % (42.2-75.2); PLT 481 X1000 (130-400); RBC 3.61 XMIL (4.2-5.4); RDW 24.8 % (11.5-14.5); WBC 9.67 X1000 (4.8-10.8)
[2019-08-17 07:59] VITALS: BP 123/67
--- NOTE | 2019-08-17 08:02 | EKG Report ---
Test Performed on : 08/15/2019 11:24:55 AM Test Reason : NEAR SYNCOPE Blood Pressure : / mmHG Vent. Rate : 091 BPM Atrial Rate : 091 BPM P-R Int : 114 ms QRS Dur : 084 ms QT Int : 348 ms P-R-T Axes : 061 028 001 degrees QTc Int : 428 ms Normal sinus rhythm. Normal ECG No previous ECGs available Unconfirmed Result
[2019-08-17] MEDS: MEGACE PO SCH (08:17)
[2019-08-17] MEDS: GLUCOPHAGE PO SCH (08:17)
--- NOTE | 2019-08-17 15:00 | DISCHARGE SUMMARY ---
ADMISSION DATE: 08/15/2019 DISCHARGE DATE: 08/17/2019 DISCHARGE DISPOSITION: Home. DISCHARGE CONDITION: Hemodynamically stable. She is alert oriented x3. Her prior vaginal bleeding has stopped. She was advised to take diabetes medication, iron, multivitamin, as well as Provera as prescribed by [employer]PERVISOR. DISCHARGE DIAGNOSES: 1. Abnormal uterine bleeding. 2. Uterine leiomyoma. 3. Acute blood loss symptomatic anemia. 4. New onset diabetes mellitus type 2. 5. Obesity. 6. Elevated prolactin levels. CONSULTATION DURING HOSPITAL ADMISSION: [employer], Dr. Hilton and Dr. Hoskins. DISCHARGE MEDICATIONS: Ferrous sulfate 325 mg daily 60 tablets, metformin 500 mg b.i.d. with meals 120 tablets, Thera M Plus tablet 1 tablet daily 60 tablets, Provera 10 mg daily, 10 tablets. Glucometer/blood glucose test strips. VITAL SIGNS: At the time of discharge temperature 97.9 degrees, pulse 73, respiratory rate 16, blood pressure 120/60, saturating 100% room air. PHYSICAL EXAMINATION: General: She does not appear in acute distress. HEENT: Oral cavity is moist. Respiratory: Air entry bilaterally equal. No wheeze, rhonchi, crackles. Cardiovascular: S1, S2 normal. No murmur or gallop or rub. Abdomen: Soft, nontender. No lower extremity edema. She does not have any significant pallor, cyanosis, clubbing, or icterus. SIGNIFICANT LABS: At hospital admission and discharge: On admission her hemoglobin was 4.8, which improved to 8.7 after 3 units of blood transfusion. She did have microcytosis with a mean corpuscular volume of 68 on presentation. Her BUN was 10, creatinine 0.6. Her hemoglobin A1c was 7. Her prolactin level was 50.9. Her urine test was negative. No microbiological data. Pelvic ultrasound had detected uterine wall mass consistent with leiomyoma. Endometrium was about 3 mm in thickness and the mass was leiomyoma was about 4.7 cm. EKG on admission had normal sinus rhythm. HOSPITAL COURSE SUMMARY: Ms. Grijalva is a 49-year-old female who has had history of thyroid disease and uterine bleeding in the past but was not able to see a doctor because of lack of insurance, though previously she was recommended hysterectomy, came in with chief complaints of near syncope episode and feeling subjective feeling of shortness of breath and she has been having uterine bleeding continuously about 2 months, which was not improving. In the emergency room she was found to have hemoglobin of 4.8, so the hospitalist team was consulted for management of symptomatic anemia. It was thought that your her bleeding was due to leiomyoma as well as ongoing abnormal uterine bleeding. She was resuscitated for intravenous fluids, intravenous blood transfusion of 3 units and [employer]PER[employer]OR was consulted, who had recommended initially megestrol which was changed to Provera at the time of discharge. At the time of discharge, she was advised to have [employer] follow-up for need for endometrial biopsy, need for getting repeat prolactin level as well as check for thyroid disease. She states she was in the process of acquiring insurance and she had applied for Medicare. More than 30 minutes of discharge time was spent in taking care of this patient. She was also started on metformin for new onset diabetes. All of her questions were answered. cc: Fabián Greenberg MD MTDD
== END 2019-08-17 12:36 | disposition home or self-care (01) | DRG 812 ==
LOC: ED 11:14 → 4N 16:58 → 2N 17:00
PROVIDERS: ATTEND Internal Medicine